=== PATIENT | female | born 1975 | race Caucasian/White ===

== ENCOUNTER → 2019-11-30 | Outpatient (CLI) | payer BC ==
[~2019-11-30] MED LIST: CYCL-259 PO; HYDR2TAB29 PO; IBUP-1223 PO
== END | disposition home or self-care (01) ==
LOC: RAD 14:24
PROVIDERS: ATTEND Anesthesiology
DX: Z01.89 Encounter for other specified special examinations (principal); I11.9 Hypertensive heart disease without heart failure
CPT/HCPCS: 71046; 93005